=== PATIENT | female | born 1945 | race Caucasian/White ===

== ENCOUNTER 2016-10-24 08:29 | Day surgery (SDC) | payer MEDICARE, OTHER ==
[~2016-10-24 08:29] MED LIST: DIPRIVAN 200 MG/20 ML IV ONE; Lactated Ringers 1,000 ML IV ONE; SUBLIMAZE 100 MCG/2 ML IV ONE; Versed 2 MG/2 ML Injection IV ONE
[2016-10-24] MEDS ORDERED: XYLOCAINE 1% HCL 20 ML MDV ONE (08:35)
[2016-10-24] MEDS ORDERED: Marcaine 0.5% SDV 10 ML ONE ×2 (08:35→08:38)
[2016-10-24] MEDS ORDERED: KEFZOL 1 GM/50 ML PREMIX** 50 ML IV ONE ×2 (08:47→09:12)
[2016-10-24] MEDS ORDERED: Lactated Ringers 1,000 ML IV SCH (09:00)
[2016-10-24] MEDS ORDERED: Lactated Ringers 1,000 ML IV ONE (09:12)
[2016-10-24 12:47] VITALS: BP 102/53; PULSE 66; O2SAT 94
--- NOTE | 2016-12-04 13:45 | OP ---
SURGERY DATE: 10/24/2016 1007 (Dictation was misplaced by Clipsure). PREOPERATIVE DIAGNOSES: 1) Diabetes with neuropathy. 2) Right third toe ulcer. 3) Hammer toes 2 and 3 right. POSTOPERATIVE DIAGNOSES: 1) Diabetes with neuropathy. 2) Right third toe ulcer. 3) Hammer toes 2 and 3 right. PROCEDURES: 1) Tenotomy extensor tendon toes 2 and 3 right foot. 2) Partial amputation right third toe. SURGEON: Selena Miranda D.P.M. ANESTHESIA: MAC with local. HEMOSTASIS: Pneumatic ankle tourniquet at 250 mm of Mercury. ESTIMATED BLOOD LOSS: None. MATERIALS: None. INJECTABLES: 10 cc of 0.5% Marcaine plain, 1% lidocaine plain at the mid shaft of metatarsals 2 and 3 right foot. COMPLICATIONS: None. PREOPERATIVE HISTORY: This 71 year-old female is a patient well-known to me for multiple problems, pronation, hammer toes, calluses, corns, ingrown toenails. I have been treating her for years. Recently she has had issues with corn on the tip of her third right toe breaking open, getting infected and causing an open sore. We have treated this conservatively. However every probably four to six months it breaks open and she has an ulceration again. The patient relates that she wants her toe straightened in order to stop the cycle of open lesions. We discussed possibilities. Due to the chronic nature of her hammer toes, it would be better just to remove the tip especially since the multiple infections she could have chronic osteomyelitis in the tip of her toe. The patient agrees to this form of treatment. We discussed the outpatient surgery, pneumatic tourniquet, the incision, the flap, the healing time. The patient also relates that her toes 2 and 3 rub up against her shoes and so we agreed to do extensor tenotomies to try and help lower those toes to prevent rubbing and further callus and ulcerations on the dorsum of her toes. We also discussed risks and complications which include postoperative infection, prolonged pain and swelling, numbness, recurrence of a deformity, no help at all. The patient relates that she understands the procedure and the complications and wishes to proceed as scheduled. PHYSICAL EXAMINATION: The patient has palpable pulses, PT/DP bilateral. She has decreased neurologic sensation of the toes bilateral. She has a cavus foot with dorsally contracted digits 2 through 5 bilateral. There is a callous at the end of the third toe. There is no odor or open lesion at this time. The distal aspect of the third toe is quite a bit wider than toes 2 and 4 which makes me think that she had previous injury or osteomyelitis to this toe. OPERATIVE SUMMARY: The patient is brought into the operating room and placed on the table in supine position. Pneumatic tourniquet is placed around the patient's right ankle. Local anesthetic is administered. The right foot is exsanguinated via Esmarch bandage and pneumatic tourniquet inflated to 250 mm of Mercury. The leg is then prepped and draped in the usual aseptic manner. Attention is then directed to the dorsal aspect of the metatarsophalangeal joint of digits 2 and 3 of the right foot where a stab incision was made medial to the extensor tendon with a sharp #15 blade. Stab incision was down to bone. The 15 blade is then turned dorsally. The digits 2 and 3 were then plantar flexed in order to release the tension of the extensor tendons to digits 2 and 3. Once good release was noted the area was flushed with copious amounts of antibiotic solution. Attention is then directed to the distal aspect of the third digit of the right foot where a sharp #15 blade is utilized to make a transverse incision along the distal interphalangeal joint from medial to lateral stopping chcf down. The incision was then directed distally around the tip of the toe staying into good healthy skin and going just plantar to the callused previously ulcerated skin. The incision goes around the tip of the toe underneath the transverse incision on the other side. The distal phalanx is then freed via sharp dissection, removed and passed off the surgical field. The remaining soft tissue and soft fatty tissue of the distal third digit is then inspected. It is noted to have no necrosis. The fatty tissue is then thinned in order to get better closure on the flap. The middle phalanx is then inspected and is noted to be white and glistening. There is no yellow or soft spots to the middle phalanx. The bone is hard in nature. There is no soft spots in the head of the middle phalanx. The area is then flushed with copious amounts of antibiotic solution and observed for any soft tissue debris. The incision is then closed with 3-0 Dexon simple interrupted-type suture and 4-0 Nylon horizontal mattress-type suture. The patient seemed to tolerate the above procedure well. Adaptic was placed over the incision site along with a dry sterile compressive dressing consisting of 4 x 4, Kerlix and Reva. Pneumatic tourniquet was released at this time with adequate perfusion. Capillary fill time noted to each digit. Superficial dressing with Coban was applied. The patient is taken to the recovery room where she was given a postoperative shoe postoperative instructions and prescription. She is to decrease her activity, ice and elevate her foot and follow up with us in one week for further care.
== END 2016-10-24 12:10 | disposition home or self-care (01) ==
LOC: SDC 08:29
PROVIDERS: ATTEND Orthopaedic Surgery Foot and Ankle Surgery
PROC: 0LNV0ZZ Release Right Foot Tendon, Open Approach (ICD-10-PCS; principal; 2016-10-24)
PROC: 0Y6T0Z3 Detachment at Right 3rd Toe, Low, Open Approach (ICD-10-PCS; 2016-10-24)
DX: E11.40 Type 2 diabetes mellitus with diabetic neuropathy, unspecified (principal); L97.519 Non-pressure chronic ulcer of other part of right foot with unspecified severity; M20.41 Other hammer toe(s) (acquired), right foot
CPT/HCPCS: 01480; 36415; 88305; 88311; J0690; J2250; J2704; J3010

== ENCOUNTER 2024-11-17 11:35 | Emergency (ER) | payer MEDICARE ==
[2024-11-17 11:51] VITALS: TEMP 97.9
--- NOTE | 2024-11-17 12:37 | ERPHSYRPT ---
- History of Present Illness Time Seen by Provider: 11/17/24 11:43 Historian: patient, family Exam Limitations: no limitations Patient Subjective Stated Complaint: pt c/o of intermittent RLQ pain for 3-4 days, was sent to the ER by Dr. Rich for a CT for a possible kidney stone Triage Nursing Assessment: Pt brought to the ER, pt denies pain at this time but the pain can go to a 9/10, pulses normal, skin n/w/d, denies difficulty with urination, no difficulty with breathing and denies chest pain, doesn't appear to be in any distress Physician History: 79-year-old female sent in ER from primary care office for right lower quadrant pain off and on for the last 3 to 4 days with progressive worsening. Patient reports no significant aggravating or relieving factors, moderate to severe intensity sharp, last for few seconds to a minute and improves. No associated nausea vomiting diarrhea or constipation. Denies any urinary complaints. No history of kidney stones. No fever or chills reported. Denies any back pain. No radiation of pain. Allergies/Adverse Reactions: No Known Drug Allergies Allergy (Verified 11/17/24 11:51) Home Medications: Aspirin 81 mg PO DAILY 06/05/14 [History] Atorvastatin Calcium [Lipitor] 40 mg PO DAILY 06/05/14 [History] Calcium Carbonate/Vitamin D3 [Calcium 600 + Vit D Tablet] 1 each PO BID 06/05/14 [History] Ergocalciferol (Vitamin D2) [Vitamin D] 50,000 unit PO WEEKLY 06/05/14 [History] Insulin Detemir [Levemir] 50 unit SQ QAM 06/05/14 [History] Isosorbide Mononitrate 60 mg [Imdur 60MG] 60 mg PO DAILY 06/05/14 [History] Linagliptin/Metformin HCl [Jentadueto 2.5 mg-1000 mg Tab] 1 each PO BID 06/05/14 [History] Lisinopril/Hydrochlorothiazide [Lisinopril-Hctz 20-25 mg Tab] 1 tab PO QPM 06/05/14 [History] Omeprazole [Prilosec] 40 mg PO DAILY 06/05/14 [History] carvediloL [Coreg] 6.25 mg PO BID 06/05/14 [History] Dulaglutide [Trulicity] 1.5 mg SQ WEEKLY 11/17/24 [History] Mv-Mins/Folic Acid/Guarana/Caf [One Daily Tablet] 1 each PO DAILY 11/17/24 [History] Vit C/E/Zn/Coppr/Lutein/Zeaxan [Preservision Areds 2 Softgel] 1 each PO BID 11/17/24 [History] Hx Influenza Vaccination/Date Given: No Hx Pneumococcal Vaccination/Date Given: No Travel Risk - International Travel Have you traveled outside of the country in past 3 weeks: No - Emerging Infectious Disease Are you exhibiting symptoms associated with any current EIDs: Yes Symptoms: Abdominal Pain - Review of Systems Constitutional: No Symptoms Ears, Nose, & Throat: No Symptoms Respiratory: No Symptoms Cardiac: No Symptoms Abdominal/Gastrointestinal: Abdominal Pain Genitourinary Symptoms: No Symptoms Musculoskeletal: No Symptoms Skin: No Symptoms Neurological: No Symptoms Endocrine: No Symptoms Hematologic/Lymphatic: No Symptoms Immunological/Allergic: No Symptoms - Past Medical History Pertinent Past Medical History: Yes Neurological History: Peripheral Neuropathy ENT History: Cataracts Cardiac History: Hypertension Respiratory History: No Pertinent History Endocrine Medical History: Diabetes Type II Musculoskeletal History: No Pertinent History, Other GI Medical History: GERD History: No Pertinent History Psycho-Social History: No Pertinent History Female Reproductive Disorders: No Pertinent History Other Medical History: Dx with [facility] Hayes from Dr. Gregory - Past Surgical History Past Surgical History: Yes Neuro Surgical History: No Pertinent History Cardiac: Cardiac Catheterization Respiratory: No Pertinent History Gastrointestinal: No Pertinent History Genitourinary: No Pertinent History Musculoskeletal: Orthopedic Surgery Female Surgical History: Dilation & Curettage, Other Other Surgical History: rt ankle,tonsils. - Social History Smoking Status: Never smoker Exposure to second hand smoke: No Drug Use: none - Social Determinants of Health Will the patient participate in the screening: Yes Do you worry about a steady place to live?: No Do you have any problems with any of the following?: No known problems In the past 12 months,have you had to go without utilities?: No Transportation Issues: No Has anyone in your support network made you feel unsafe?: No Have you or anyone in your house had to go w/o enough food: No - Nursing Vital Signs Nursing Vital Signs: Initial Vital Signs Temperature 97.9 F 11/17/24 11:43 Pain Scale Pain Intensity 0 - Physical Exam General Appearance: no apparent distress, alert Ears, Nose, Throat Exam: pharynx normal, moist mucous membranes Neck Exam: normal inspection, supple, full range of motion Respiratory Exam: normal breath sounds, lungs clear Cardiovascular Exam: regular rate/rhythm, normal heart sounds Gastrointestinal/Abdomen Exam: soft, normal bowel sounds, tenderness (Mild tenderness to deep palpation in right lower quadrant with no guarding or rebound) Back Exam: No CVA tenderness Extremity Exam: normal inspection, normal range of motion Neurologic Exam: alert, oriented x 3, cooperative Skin Exam: normal color SpO2 Interpretation: normal SpO2: 96 O2 Delivery: Room Air Ordered Tests: Active Orders 24 hr Category Date Time Status ABDOMEN AND PELVIS W/0 CONTRAS [CT] Stat Exams 11/17/24 12:29 Completed CBC W DIFF Stat Lab 11/17/24 12:55 Completed CMP Stat Lab 11/17/24 12:55 Completed UA W/RFX UR CULTURE Stat Lab 11/17/24 13:07 Completed Lab/Rad Data: Laboratory Result Diagrams 11/17/24 12:55 11/17/24 12:55 Laboratory Results 11/17/24 11/17/24 11/17/24 Range/Units 13:07 12:55 12:55 WBC 5.0 (3.98-10.04) x10^3/uL RBC 3.99 (3.93-5.22) x10^6/uL Hgb 11.8 (11.2-15.7) g/dL Hct 36.0 (34.1-44.9) % MCV 90.2 (79.4-94.8) fL MCH 29.6 (25.6-32.2) pg MCHC 32.8 (32.2-35.5) g/dL RDW 13.5 (11.7-14.4) % Plt Count 140 L (182-369) x10^3/uL MPV 10.3 (9.4-12.3) fL Gran % 53.4 (34.0-71.1) % Immature Gran % (Auto) 0.2 (0.001-0.429) % Nucleat RBC Rel Count 0.0 (0.00-0.2) % Eos # (Auto) 0.19 (0.04-0.36) x10^3/uL Immature Gran # (Auto) 0.01 (0.001-0.031) x10^3u/L Absolute Lymphs (auto) 1.71 (1.18-3.74) x10^3/uL Absolute Monos (auto) 0.39 (0.24-0.86) x10^3/uL Absolute Nucleated RBC 0.00 (0.00-0.012) x10^3u/L Lymphocytes % 33.9 (19.3-51.7) % Monocytes % 7.7 (4.7-12.5) % Eosinophils % 3.8 (0.7-5.8) % Basophils % 1.0 (0.1-1.2) % Absolute Granulocytes 2.69 (1.56-6.13) x10^3/uL Basophils # 0.05 (0.01-0.08) x10^3/uL Sodium 140 (135-145) mmol/L Potassium 4.3 (3.5-5.1) mmol/L Chloride 102 (98-107) mmol/L Carbon Dioxide 25 (22-30) mmol/L Anion Gap 17.4 H (5-15) MEQ/L BUN 16 (7-17) mg/dL Creatinine 0.99 (0.52-1.04) mg/dL Estimated GFR 58.7 ML/MIN Glucose 143 H (74-106) mg/dL Calcium 10.0 (8.4-10.2) mg/dL Total Bilirubin 0.90 (0.2-1.3) mg/dL AST 42 H (14-36) U/L ALT 48 H (0-35) U/L Alkaline Phosphatase 61 (38-126) U/L Serum Total Protein 7.6 (6.3-8.2) g/dL Albumin 4.8 (3.5-5.0) g/dL Urine Color Yellow (Yellow) Urine Appearance Clear (Clear) Urine pH 8.5 A (4.6-8.0) Ur Specific Renick 1.010 (1.005-1.030) Urine Protein Negative (Negative) Urine Glucose (UA) Negative (Negative) mg/dL Urine Ketones Negative (Negative) Urine Blood Negative (Negative) Urine Nitrite Negative (Negative) Urine Bilirubin Negative (Negative) Urine Urobilinogen 0.2 (0.2) mg/dL Ur Leukocyte Esterase Negative (Negative) U Hyaline Cast (Auto) NONE SEEN (0-2) /LPF Urine Microscopic RBC 0-2 (0-5) /HPF Urine Microscopic WBC 0-2 (0-5) /HPF Ur Epithelial Cells None Seen (None Seen) /HPF Urine Bacteria None Seen (None Seen) /HPF Urine Culture Reflexed NO (NO) - Progress Progress: improved, re-examined Progress Note: 11/17/24 14:29 79-year-old is evaluated in the ER for right lower quadrant pain off and on for the last 3 to 4 days. Patient has minimal tenderness in right lower quadrant. She is offered pain medication which she declined, pain is also intermittent and very short-lived. Workup showed normal white count, chemistries fairly unremarkable and no UTI. Obtain CT abdomen pelvis which showed small appendicolith with no signs of acute appendicitis. Has bilateral tiny calculi in the kidneys but no ureteral calculus, hydroureteronephrosis, intestinal obstruction, colitis or any other acute intra-abdominal pelvic findings. Did report some swelling in the abdominal wall, I did not appreciate any abdominal wall swelling on exam. She is advised to take Tylenol as needed. Do not know the exact cause of her pains, recommended outpatient follow-up. Discussed signs symptoms of worsening needing return to ER which she seems understanding. Stable for discharge. Counseled pt/family regarding: lab results, diagnosis, need for follow-up, rad results Medical Desision Making - Diagnostic Testing Diagnostic test were ordered, analyzed, and reviewed by me: Yes Radiological Interpretation: Reviewed by me - Departure Departure Disposition: Home Clinical Impression: RLQ abdominal pain Condition: Stable Critical Care Time: No Referrals: DAVE RICH MD [Primary Care Provider] - Follow up with PCP 1 day Instructions: Abdominal pain in adults - Discharge instructions Additional Instructions: Take Tylenol as needed. Follow-up with primary care for reevaluation. Return to ER for intractable pain/vomiting/diarrhea or if develop fever chi lls/difficulty urination etc.
[2024-11-17 13:02] LABS: Absolute Neutrophil Ct (ANC) 2.69 x10^3/uL (1.56-6.13); Basophil (Absolute #) 0.05 x10^3/uL (0.01-0.08); Eosinophil % 3.8 % (0.7-5.8); Eosinophil (Absolute #) 0.19 x10^3/uL (0.04-0.36); Hemoglobin 11.8 g/dL (11.2-15.7); IMMATURE GRAN # 0.01 x10^3u/L (0.001-0.031); IMMATURE GRAN % 0.2 % (0.001-0.429); Lymphocyte (Absolute #) 1.71 x10^3/uL (1.18-3.74); Lymphocytes % 33.9 % (19.3-51.7); Mean Cell Volume 90.2 fL (79.4-94.8); Mean Corpuscular Hemoglobin 29.6 pg (25.6-32.2); Mean Corpuscular Hgb Concent. 32.8 g/dL (32.2-35.5); Mean Platelet Volume 10.3 fL (9.4-12.3); Monocyte (Absolute #) 0.39 x10^3/uL (0.24-0.86); Monocytes % 7.7 % (4.7-12.5); Neutrophil % 53.4 % (34.0-71.1); Platelet Count 140 x10^3/uL (182-369); Red Blood Count 3.99 x10^6/uL (3.93-5.22); Red Cell Distribution Width 13.5 % (11.7-14.4)
[2024-11-17 13:12] LABS: Appearance Clear (Clear); Bacteria None Seen /HPF (None Seen); Bilirubin Negative (Negative); Blood Negative (Negative); Epithelial Cells None Seen /HPF (None Seen); Glucose, Urine Negative (Negative); Hyaline Casts NONE SEEN /LPF (0-2); Ketones Negative (Negative); Leukocyte Esterase Negative (Negative); Nitrite Negative (Negative); Ph 8.5 (4.6-8.0); Protein,Urine Dip Negative (Negative); RBC 0-2 /HPF (0-5); Urobilinogen 0.2 mg/dL (0.2); WBC 0-2 /HPF (0-5)
[2024-11-17 13:17] LABS: ALBUMIN 4.8 g/dL (3.5-5.0); ANION GAP 17.4 MEQ/L (5-15); BILIRUBIN,TOTAL 0.9 mg/dL (0.2-1.3); Creatinine 1 0.99 mg/dL (0.52-1.04); EST GLOMERULAR FILTRATION RATE 58.7 ML/MIN; Potassium 4.3 mmol/L (3.5-5.1); Total Protein 7.6 g/dL (6.3-8.2)
--- NOTE | 2024-11-17 13:56 | XRAY ---
Indication: Right lower quadrant pain. Stone. Appendicitis. Multiple contiguous axial images obtained through the abdomen and pelvis without contrast using renal stone protocol. Comparison: None Lung bases demonstrates mild scattered subsegmental atelectasis/scarring. 4 mm right middle lobe noncalcified nodule. 5 mm posterior right lower lobe calcified granuloma. Heart is not enlarged. Nonobstructing 6 mm left mid renal calculus. Nonobstructing punctate right renal calculus. No hydronephrosis/hydroureter or evidence for obstructive uropathy. Noncontrasted stomach and bowel loops appear nonobstructed. Appendix demonstrates a few tiny 2-3 mm appendicoliths without appendicitis. Uterus demonstrates multiple small subserosal calcified fibroids. Incidental 9 mm gallstone and multiple tiny hepatic/splenic calcified granulomas. No free fluid/air. Remaining liver, gallbladder, pancreas, spleen, adrenal glands, kidneys, ureters, bladder, and uterus are unremarkable for noncontrast exam. Mild scattered aortoiliac calcifications without AAA. Osseous structures intact with osteopenia, mild/moderate multilevel thoracolumbar degenerative spondylosis, and mild degenerative changes both hips. Abdominal wall demonstrates scattered cutaneous/subcutaneous soft tissue swelling possibly inflammatory/infectious. Lack of IV contrast precludes further characterization. No focal solid/cystic mass or abnormal fluid collection. Impression: 1. Nonobstructing micro-calculus in each kidney. 2. Scattered abdominal wall cutaneous/subcutaneous soft tissue swelling. Rule out inflammatory/infectious process. 3. Indeterminant right middle lobe noncalcified micro-nodule. Finding too small for PET/CT. Possibly granulomatous etiology. Outside comparison studies recommended if available. If not consider baseline CT with follow-up per Fleischner guidelines. 4. Chronic findings including tiny appendicoliths, uterine calcified fibroids, gallstone, arteriosclerotic disease, and chronic bony findings.
[2024-11-17 14:10] VITALS: BP 119/86; PULSE 66; RESP 21
[2024-11-17 14:28] VITALS: O2SAT 96
== END 2024-11-17 14:30 | disposition home or self-care (01) ==
LOC: ED 11:35
DX: R10.31 Right lower quadrant pain (principal); E11.42 Type 2 diabetes mellitus with diabetic polyneuropathy; I10 Essential (primary) hypertension; Z79.4 Long term (current) use of insulin; Z79.84 Long term (current) use of oral hypoglycemic drugs; Z79.85 Long-term (current) use of injectable non-insulin antidiabetic drugs; Z79.899 Other long term (current) drug therapy
CPT/HCPCS: 36415; 74176; 80053; 81001; 85025; 99284